=== PATIENT | male | born 1985 | race African-American/Black ===

== ENCOUNTER → 2017-11-06 | Day surgery (SDC) | payer OTHER ==
[~2017-11-06] MED LIST: LIDOCAINE 2% INJ 100 MG/5 ML SDV (FOR ANES.) As Ordered; PROPOFOL 200 MG/20 ML VIAL As Ordered; fentaNYL 100 MCG/2 ML INJECTION (J3010) As Ordered
[2017-11-06] MEDS: NS 1,000 ML IV (14:15)
== END | disposition home or self-care (01) ==
LOC: M OPP 14:00
DX: K21.9 Gastro-esophageal reflux disease without esophagitis (principal); K22.8 Other specified diseases of esophagus; K29.70 Gastritis, unspecified, without bleeding; B96.81 Helicobacter pylori [H. pylori] as the cause of diseases classified elsewhere; I10 Essential (primary) hypertension; R12 Heartburn; Z88.0 Allergy status to penicillin; Z79.899 Other long term (current) drug therapy
CPT/HCPCS: 43239